=== PATIENT | female | born 2000 | race Caucasian/White ===

== ENCOUNTER 2021-08-27 06:27 | Day surgery (SDC) | payer OTHER ==
[~2021-08-27] VITALS: Ht 152.4 cm; Wt 90.9 kg
[~2021-08-27 06:27] MED LIST: CLINDAMYCIN 900MG PREMIX 50 ML IV PRN; HYDROmorphone 2 MG/ML VIAL IVP PRN; IV RINGERS,LACTATED 1000ML 1,000 ML IV SCH; MORPHINE SULFATE 2 MG/ML INJ. IVP PRN; PROCHLORPERAZINE 10 MG/2 ML VIAL. IVP PRN; fentaNYL PF VIAL 100 MCG/2 ML VIAL IVP PRN
[2021-08-27 06:57] VITALS: BP 143/63
[2021-08-27] MEDS ORDERED: MIDAZOLAM HCL/PF 2 MG/2 ML VIAL. ONE (07:10)
[2021-08-27] MEDS ORDERED: ROPIVacaine 0.5% PF 20 ML VIAL. ONE (07:12)
[2021-08-27] MEDS ORDERED: EPINEPHrine VIAL 30 MG/30 ML VIAL ONE (07:13)
[2021-08-27] MEDS ORDERED: EPINEPHrine 1 MG/ML VIAL ONE (07:13)
[2021-08-27] MEDS ORDERED: DEXAMETHASONE SOD PHOS 4 MG/ML VIAL ONE ×2 (07:42→08:44)
[2021-08-27] MEDS ORDERED: FAMOTIDINE 20 MG/2 ML VIAL ONE ×2 (07:42→07:57)
[2021-08-27] MEDS ORDERED: ONDANSETRON PF 4 MG/2 ML VIAL. ONE ×2 (07:42→08:44)
[2021-08-27] MEDS ORDERED: PROPOFOL 10 MG/ML (20ML) VIAL. IV ONE ×2 (07:42→08:43)
[2021-08-27] MEDS ORDERED: ROCURONIUM 50 MG/5 ML VIAL. ONE ×2 (07:42→08:44)
[2021-08-27] MEDS ORDERED: LIDOCAINE 1% PF 5 ML VIAL. ONE (07:43)
[2021-08-27] MEDS ORDERED: fentaNYL PF VIAL 100 MCG/2 ML VIAL ONE ×3 (07:58→10:23)
[2021-08-27] MEDS ORDERED: LIDOCAINE 2% PF 5 ML VIAL. ONE (08:43)
[2021-08-27] MEDS ORDERED: PHENYLEPHRINE in 0.9% NACL PF 1 MG/10 ML SYRINGE. IV ONE (09:23)
[2021-08-27] MEDS ORDERED: OXYC1TAB15 PO (10:16)
--- NOTE | 2021-08-27 10:19 | DISCH ---
DISCHARGE INSTRUCTIONS Condition on Discharge Condition on Discharge: Stable Activity After Discharge Activity Instructions for Disc: Other, see below (Fine motor use with elbow at side like eating writing typing no reaching away from body) Weight Bearing Status after Di: Non weight bearing Diet after Discharge Diet after Discharge: Regular Wound Incision Care Wound/Incision Care: Ice to area for comfort, Change dressing (Remove dressing in 2 days may then shower) Contacting the [facility] after DC Call your doctor for: Concerns you may have Follow-Up Follow up with: Dr. David or Lino 10 days ALYSON DAVID MD Aug 27, 2021 10:19
[2021-08-27] MEDS ORDERED: PROCHLORPERAZINE 10 MG/2 ML VIAL. ONE (10:25)
[2021-08-27 10:36] VITALS: BP 100/55
[2021-08-27] MEDS ORDERED: oxyCODONE/APAP 5/325 1 TAB TABLET ONE (10:37)
[2021-08-27] MEDS ORDERED: oxyCODONE/APAP 5/325 1 TAB TABLET PO ONE (10:45)
--- NOTE | 2021-08-27 20:38 | PDOC4 ---
Operative Note Operative Note Date of surgery: 08/27/2021 Preoperative diagnosis: Right shoulder labral tear and instability Postoperative diagnosis: Type I SLAP tear partial-thickness undersurface supraspinatus tear and inferior instability more so arm at side Operative procedure: Right shoulder examination under anesthesia arthroscopy debridement type I SLAP and partial-thickness rotator cuff repair and rotator interval closure Surgeon: Frankie Cordwood Cutter: Eh kraus assist Anesthesia: General plus scalene block Estimated blood loss: 5 cc Complications: None Operative indications: Please see my preoperative clinic notes for detailed operative indications and note that patient is a 21-year-old [id number] individual who fell while climbing at work and had her right dominant extremity extended and attempted to grab on and since that time has felt the shoulder painful and unstable feeling unresponsive to physical therapy when reaching out away from her body. I was concerned with labral irregularity and her symptoms of instability and talked about the possibility of examination under anesthesia and potential capsular plication and correction of any other pathological issues as she was not getting relief with ongoing physical therapy and nonoperative management. We have talked about the possibility of infection continued instability and pain nerve or blood vessel damage medical or other anesthetic complications among others all her questions were answered she wishes to proceed with surgical evaluation and treatment Operative text: Patient was identified procedure verified patient placed in the supine position on the operating table. After adequate amounts of general anesthesia were administered, patient was placed in the decubitus position right side up all bony prominences were well-padded and the right shoulder was examined under anesthesia. She was found to have full range of motion and essentially found to have some mild multidirectional instability. The right upper extremity was then prepped and draped in the standard sterile fashion and placed in 10 pounds of traction using the arthroscopic arm magdaleno and after timeout was performed patient procedure identified and verified a standard posterior portal was established an anterior portal established using spinal needle localization and the shoulder joint was systematically examined. She was found to have a type I SLAP tear and some partial-thickness undersurface rotator cuff fraying which was trimmed back to stable tissue. Subscapularis was noted to be normal as was the bare area of the humerus and the anterior inferior glenoid and labral attachment. No subluxation of the biceps tendon was noted. She did not appear to have a large anterior inferior sulcus but instead had more isolated inferior instability more with the arm to the side or slight abduction. Based on the primarily inferior instability and lack of a large inferior sulcus I elected to perform a rotator interval closure which was conducted through the anterior portal passing a max braid suture twice through the rotator interval with a [employer] suture passing device and then securing the repair with a sliding locking knot backed up by alternating post half hitches. Clinically this did elevate the arm to a more anatomic position on examination and no exacerbation of the multidirectional instability was noted. The joint was drained of arthroscopic fluid portals closed with nylon suture sterile dressings were applied patient was placed in an immobilizer return to recovery room in stable condition having tolerated procedure well. Eh kraus assist was present for the procedure assisted in patient positioning prepping draping equipment positioning closure and dressings ALYSON CHEN MD Aug 27, 2021 20:38
== END 2021-08-27 11:16 | disposition home or self-care (01) ==
LOC: SURG 06:27
PROVIDERS: ATTEND Orthopaedic Surgery
DX: S43.431A Superior glenoid labrum lesion of right shoulder, initial encounter (principal); Z88.1 Allergy status to other antibiotic agents; Z88.8 Allergy status to other drugs, medicaments and biological substances; Z79.899 Other long term (current) drug therapy; Z98.890 Other specified postprocedural states; X58.XXXA Exposure to other specified factors, initial encounter; Y93.89 Activity, other specified; Y92.89 Other specified places as the place of occurrence of the external cause; Y99.8 Other external cause status
CPT/HCPCS: 29807; 29827; 64415; 81025; A4364; A4565; A4930; J0171; J0780; J1100; J2250; J2370; J2405; J2704; J2795; J3010; J3490; 76000; A4452